=== PATIENT | female | born 1950 | race Caucasian/White ===

== ENCOUNTER → 2016-12-15 07:38 | Outpatient (CLI) | payer MEDICARE, OTHER ==
[~2016-12-15 07:38] MED LIST: AMBIEN10 MG PO; BIOTIN5 MG PO; CALCIUM 500 + D1 TAB PO; CARAFATE1 G PO; HYDROCODON-ACE1 EAC7 PO; METOPROLOL TART50 MG PO; MULTIPLE VITAMI1 TA1 PO; NEURONTIN 300300 MG PO; PEPCID20 MG PO; PROTONIX40 MG PO; ULTRAM50 MG PO
[2017-01-09 13:46] VITALS: BMI 25.5
== END ==
LOC: D.RAD 12-08 08:00
DX: K44.9 Diaphragmatic hernia without obstruction or gangrene (principal); K21.9 Gastro-esophageal reflux disease without esophagitis; R11.0 Nausea

== ENCOUNTER 2017-01-09 06:15 | Inpatient (IN) | payer MEDICARE, OTHER ==
[2017-01-09] VITALS (8 sets, daily range): BP systolic 125–156; BP diastolic 53–80; BMI 25818.0; BMI 25.5
[~2017-01-09 06:15] MED LIST changes: -BIOTIN5 MG PO; -CALCIUM 500 + D1 TAB PO; -HYDROCODON-ACE1 EAC7 PO; -MULTIPLE VITAMI1 TA1 PO
[2017-01-09 06:46] LABS: HEMATOCRIT 41.1 % (36.0-48.0); HEMOGLOBIN 12.7 g/dL (12-16); MCH 28.5 pg (26.0-34.0); MCHC 30.9 g/dL (31.0-37.0); MCV 92.4 fL (80.0-100.0); RBC 4.45 10x6/uL (4.00-5.40); RDW 13.9 % (11.5-14.5); WBC 8.6 10x3/uL (4.8-10.8)
[2017-01-09] MEDS ORDERED: BIOTIN5 MG PO (07:29)
[2017-01-09] MEDS ORDERED: MULTIPLE VITAMI1 TA1 PO (07:29)
[2017-01-09] MEDS ORDERED: CALCIUM 500 + D1 TAB PO (07:29)
--- NOTE | 2017-01-09 07:57 | NUR ---
DR. CHANG ADVISED OF PT'S BRADYCARDIA.
--- NOTE | 2017-01-09 13:45 | NUR ---
PT ARRIVED TO UNIT VIA BED ACCOMPAINIED BY HOSPITAL STAFF AND FAMILY. PT HAS A RT HAND IV RUNNING LR AT 150MLS WITH A ACCOUNT ENGINEER MORPHINE. PT IS ON O2 AT 2LPM WITH SATS OF 95%. PT HAS ABD INCISIONS COVERED WITH STERI STRIPS FROM SX. PT HAS LEFT SIDED FACIAL DROOP AND TIC THAT PT STATES SHE "HAS HAD FOR YEARS FROM TRIGEMINAL NEURALGIA." PT FAMILY AT BEDSIDE, DENIES NEEDS. WCTM.
--- NOTE | 2017-01-09 14:04 | OP ---
PATIENT NAME: POLO RUIZ MEDICAL RECORD: [id number] :52 LOCATION:D[id number] ADMISSION DATE: SURGEON: TEN BREWER MD DATE OF OPERATION: 01/09/2017 PREOPERATIVE DIAGNOSES: 1. Grade III paraesophageal hernia. 2. Tenorio esophagus with esophagitis. 3. Gastroesophageal reflux disease. POSTOPERATIVE DIAGNOSES: 1. Grade III paraesophageal hernia. 2. Tenorio esophagus with esophagitis. 3. Gastroesophageal reflux disease. PROCEDURE PERFORMED: Laparoscopic paraesophageal hernia repair with Cristiana fundoplication. ANESTHESIA: General. COMPLICATIONS: None. SPECIMENS: None. Case was clean. ESTIMATED BLOOD LOSS: 20 cc. OPERATIVE COURSE: After consent was obtained, the patient was taken to the operating room and placed in the supine position on the operating table. Next, general anesthesia was given via endotracheal intubation after a timeout was performed that confirmed the correct patient and procedure. Abdomen was prepped and draped in typical sterile fashion. Local anesthetic was injected just above the umbilicus. A stab incision was made with 11-blade scalpel. Using an 11-mm bladeless optical trocar, the abdomen was entered under direct laparoscopic vision. Adequate pneumoperitoneum was achieved. The patient was placed in the steep reverse Trendelenburg position. All remaining trocars were placed, 12-mm trocar and 5-mm trocar in the right lateral quadrant and two 5-mm trocars in the left lateral quadrant. Carmelina liver retractor in the subxiphoid position of the liver. The left lobe of liver was retracted exposing the GE junction. The upper two-thirds of the stomach were sitting within the chest cavity. At this time, the stomach was reduced. Dissection continued along the cardia. The short gastrics were taken along the cardia and dissection continued to the level of the left alonzo. The left alonzo was skeletonized. The hernia sac was circumferentially dissected at this time from the left alonzo to the midline. Next, the gastrohepatic ligament was opened using the Harmonic scalpel. Dissection continued to the level of the right alonzo. The right alonzo was skeletonized using Harmonic scalpel. The hernia sac was circumferentially dissected at this time using Harmonic scalpel. Mediastinal dissection was performed until approximately 6 cm of intraabdominal esophagus was obtained. The hernia sac was excised off the stomach. The hernia defect was closed using 0 Stratafix polypropylene suture. Next, the cardia of the stomach was passed posterior to the gastroesophageal junction. A loose floppy Cristiana fundoplication was performed with 2-0 Stratafix suture. Once complete, the abdomen was copiously irrigated and suctioned. Careful attention was paid to OPERATIVE REPORT [id number] SAMPLE,POLO Bryson andrew. At this time, the remaining portion of the abdomen was inspected with no evidence of bowel injury and no evidence of bleeding. The 12-mm and 11-mm trocars were removed. The trocar sites were closed with 0 Vicryl suture on a Mu-Emilee suture passer under direct laparoscopic vision. The Carmelina liver retractor was removed. The abdominal cavity was inspected with no evidence of bowel injury and no evidence of bleeding. At this time, all remaining instruments were removed. The abdomen was desufflated. Two Valsalva maneuvers were performed. The remaining trocars were removed. The skin was closed with 4-0 Monocryl, Mastisol and Steri-Strips. At the end of the case, all needle and instrument counts were correct. No complications occurred. The patient was extubated and transferred to the PACU in stable condition. TRANSINT:[id number] Voice Confirmation ID: [id number] DOCUMENT ID: [id number] TEN BREWER MD at 1404 CC: [id number] DICTATION DATE: 01/09/17 1213 MANAGER RELATIONSHIP: 01/09/17 1333 REG [facility] [address] [id number]
--- NOTE | 2017-01-09 23:52 | NUR ---
192) REC'D. IN BED.SITTING IN UPRIGHT POSITION.PILLOW TO ABDOMEN FOR SUPPORT.SIX LAP SITES INTACT.TO ABD. NO REDNESS OR DRAINAGE NOTED.BOWEL SOUNDS PRESENT. STATES NOT PASSING ANY FLATUS AT PRESENT TIME.ASSISTED UP TO BATHROOM TO VOID ANNE. WELL.HUMAN RESOURCES ADMIN MORPHINE INTACT FOR SELF PAIN CONTROL. RATING PAIN 6 ON ONE TEN PAIN SCALE. WILL CONTINUE TO MONITOR FOR ANY CHGES. AND FOLLOW CURRENT PLAN OF CARE.
[2017-01-10] VITALS: BP 120/54
--- NOTE | 2017-01-10 02:00 | NUR ---
PT DENIES ANY NEEDS AT THIS TIME. IV RIGHT WRIST LR @ 125, GAS BOOSTER ENGINEER IN USE FOR PAIN CONTROL. PT STATES PAIN HAS LIGHTENED UP. SCD'S ON. CALL LIGHT IN REACH, BED IN LOWEST POSITION.
[2017-01-10 04:00] VITALS: BP 114/76
[2017-01-10 06:03] LABS: BASOPHILS 0.2 % (0-2); EOSINOPHILS 0.1 % (0-7); HEMOGLOBIN 10.4 g/dL (12-16); IMMATURE GRANULOCYTES 0.2 % (0-5); LYMPHOCYTES 15.8 % (15-50); MCH 29.1 pg (26.0-34.0); MCHC 31.8 g/dL (31.0-37.0); MCV 91.3 fL (80.0-100.0); MEAN PLATELET VOLUME 10.4 fL (7.4-10.4); MONOCYTES 11.8 % (2-11); NEUTROPHILS 71.9 % (40-80); PLATELET COUNT 328 10x3/uL (130-400); RBC 3.58 10x6/uL (4.00-5.40); RDW 14.1 % (11.5-14.5); WBC 10.6 10x3/uL (4.8-10.8)
[2017-01-10 06:06] LABS: HEMATOCRIT 32.7 % (36.0-48.0)
[2017-01-10 06:37] LABS: ALBUMIN 2.8 g/dL (3.4-5.0); ALKALINE PHOSPHATASE 69 U/L (46-116); ALT (SGPT) 22 U/L (10-68); CALC OSMOLALITY 277 mosm/kg (275-300); CALCIUM 8.9 mg/dL (8.5-10.1); CARBON DIOXIDE 28.5 mmol/L (21.0-32.0); CHLORIDE - SERUM 104 mmol/L (98-107); CREATININE - SERUM 0.7 mg/dL (0.6-1.3); GLUCOSE 104 mg/dL (74-106); PROTEIN - SERUM 5.9 g/dL (6.4-8.2); SODIUM 139 mmol/L (136-145); UREA NITROGEN 12 mg/dL (7-18); eGFR NON AFRICAN AMERICAN 89 mL/min (90-120)
[2017-01-10] MEDS ORDERED: HYDROCODON-ACE1 EAC7 PO (08:27)
[2017-01-10 09:40] VITALS: BP 120/57; BP 136/67
--- NOTE | 2017-01-10 11:15 | NUR ---
D/C IV FROM RIGHT WRIST WITH CATHETER INTACT. DISCHARGE INSTRUCTIONS COMPLETED WITH PATIENT. PATIENT VERBALIZED UNDERSTANDING AND DENIES OTHER QUESTIONS.
--- NOTE | 2017-01-10 11:48 | NUR ---
PATIENT LEFT VIA WHEELCHAIR WITH FAMILY AND VOLUNTEER STAFF.
== END 2017-01-10 11:49 | disposition home or self-care (01) | DRG 328 ==
LOC: D.MS 06:15 → D.SDCHOLD 06:15 → D.OPS 06:15 → EDSTATUS 10:00 → D.PAN 10:00 → D.MS 12:06 → D.OPS 12:06 → D.MS 01-10 11:49 → D.SDCHOLD 01-10 11:49 → UNDOADMIN 01-10 11:49
PROVIDERS: Anesthesiology; ADMIT Surgery
PROC: 0BQT4ZZ Repair Diaphragm, Percutaneous Endoscopic Approach (ICD-10-PCS; 2017-01-09)
PROC: 0DV44ZZ Restriction of Esophagogastric Junction, Percutaneous Endoscopic Approach (ICD-10-PCS; principal; 2017-01-09 09:00)
DX: K44.9 Diaphragmatic hernia without obstruction or gangrene (principal); K21.0 Gastro-esophageal reflux disease with esophagitis; K22.70 Barrett's esophagus without dysplasia; Z79.891 Long term (current) use of opiate analgesic; Z79.899 Other long term (current) drug therapy; Z01.812 Encounter for preprocedural laboratory examination

== ENCOUNTER 2018-11-19 19:42 | Emergency (ER) | payer MEDICARE, OTHER ==
[~2018-11-19] VITALS: Ht 157.5 cm; Wt 68.2 kg
[~2018-11-19 19:42] MED LIST changes: +BIOTIN5 MG PO; +CALCIUM 500 + D1 TAB PO; +HYDROCODON-ACE1 EAC7 PO; +MULTIPLE VITAMI1 TA1 PO
[2018-11-19 20:06] VITALS: Ht 157.5 cm; Wt 68.2 kg
[2018-11-19] MEDS ORDERED: NORVASC5 MG PO (20:12)
[2018-11-19] MEDS ORDERED: LISINOPRIL20 MG PO (20:12)
[2018-11-19 22:00] VITALS: BP 127/62
== END 2018-11-19 22:32 | disposition home or self-care (01) ==
LOC: D.ER 19:42
DX: M25.561 Pain in right knee (principal); M25.461 Effusion, right knee; I10 Essential (primary) hypertension

== ENCOUNTER → 2018-12-17 10:23 | Outpatient (CLI) | payer MEDICARE, OTHER ==
[2018-11-19 20:06] VITALS: BMI 27.5
[~2018-12-17 10:23] MED LIST changes: +LISINOPRIL20 MG PO; +NORVASC5 MG PO; +ZOFRAN ODT4 MG/UDTAB PO
== END | disposition home or self-care (01) ==
LOC: D.RAD 10:23
PROVIDERS: ATTEND Internal Medicine Gastroenterology
DX: K58.0 Irritable bowel syndrome with diarrhea (principal); R12 Heartburn; K21.9 Gastro-esophageal reflux disease without esophagitis; R11.2 Nausea with vomiting, unspecified

== ENCOUNTER → 2018-12-28 08:10 | Outpatient (CLI) | payer MEDICARE, OTHER ==
[2018-11-19 20:06] VITALS: BMI 27.5
== END | disposition home or self-care (01) ==
LOC: D.CT 08:10
PROVIDERS: ATTEND Internal Medicine Gastroenterology
DX: K21.9 Gastro-esophageal reflux disease without esophagitis (principal); R10.13 Epigastric pain; Z98.890 Other specified postprocedural states

== ENCOUNTER 2019-01-13 09:06 | Emergency (ER) | payer MEDICARE, OTHER ==
[~2019-01-13] VITALS: Ht 157.5 cm; Wt 67.3 kg
[~2019-01-13 09:06] MED LIST changes: -ZOFRAN ODT4 MG/UDTAB PO
[2019-01-13 09:10] VITALS: Ht 157.5 cm; Wt 67.3 kg
[2019-01-13 09:33] LABS: BASOPHILS 0.4 % (0-2); HEMATOCRIT 40.7 % (36.0-48.0); HEMOGLOBIN 13.5 g/dL (12-16); IMMATURE GRANULOCYTES 0.2 % (0-5); LYMPHOCYTES 21.9 % (15-50); MCH 30.3 pg (26.0-34.0); MCHC 33.2 g/dL (31.0-37.0); MCV 91.5 fL (80.0-100.0); MONOCYTES 9.1 % (2-11); NEUTROPHILS 67.4 % (40-80); PLATELET COUNT 378 10x3/uL (130-400); RBC 4.45 10x6/uL (4.00-5.40); RDW 13.1 % (11.5-14.5); WBC 8.2 10x3/uL (4.8-10.8)
[2019-01-13 09:42] LABS: APTT 26.2 SECONDS (22.8-39.4); CALC OSMOLALITY 277 mosm/kg (275-300); CALCIUM 9.1 mg/dL (8.5-10.1); CARBON DIOXIDE 25.5 mmol/L (21.0-32.0); CHLORIDE - SERUM 102 mmol/L (98-107); CREATININE - SERUM 0.8 mg/dL (0.6-1.3); GLUCOSE 105 mg/dL (74-106); INR 1.12 (0.85-1.17); POTASSIUM - SERUM 3.4 mmol/L (3.5-5.1); PROTIME 13.9 SECONDS (11.6-15.0); SODIUM 139 mmol/L (136-145); UREA NITROGEN 13 mg/dL (7-18); eGFR NON AFRICAN AMERICAN 76 mL/min (90-120)
[2019-01-13 10:05] LABS: ALBUMIN 3.7 g/dL (3.4-5.0); ALKALINE PHOSPHATASE 103 U/L (46-116); ALT (SGPT) 22 U/L (10-68); BILIRUBIN - TOTAL 0.59 mg/dL (0.2-1.3); CKMB 2.1 U/L (0.0-3.6); CREATINE KINASE 76 UL (21-215); MAGNESIUM - SERUM 1.7 mg/dL (1.8-2.4); PROTEIN - SERUM 7.3 g/dL (6.4-8.2); TROPONIN-I < 0.017 ng/mL (0.000-0.060)
[2019-01-13] MEDS ORDERED: ZOFRAN ODT4 MG/UDTAB PO (11:56)
[2019-01-13 12:11] VITALS: BP 121/63
== END 2019-01-13 12:12 | disposition home or self-care (01) ==
LOC: D.ER 09:06
PROVIDERS: Family Medicine
DX: R07.9 Chest pain, unspecified (principal); A08.4 Viral intestinal infection, unspecified; I10 Essential (primary) hypertension; M19.90 Unspecified osteoarthritis, unspecified site; M79.7 Fibromyalgia

== ENCOUNTER 2019-06-23 12:46 | Emergency (ER) | payer MEDICARE, OTHER ==
[~2019-06-23 12:46] MED LIST changes: +ZOFRAN ODT4 MG/UDTAB PO
[2019-06-23 12:54] VITALS: Ht 157.5 cm
[2019-06-23] MEDS ORDERED: COLCRYS0.6 MG PO (13:49)
[2019-06-23] MEDS ORDERED: STERAPRED DS 1010 MG PO (13:49)
[2019-06-23 14:06] VITALS: BP 123/78
== END 2019-06-23 14:07 | disposition home or self-care (01) ==
LOC: D.ER 12:46
DX: M25.561 Pain in right knee (principal); M25.461 Effusion, right knee; I10 Essential (primary) hypertension; K21.9 Gastro-esophageal reflux disease without esophagitis

== ENCOUNTER → 2019-07-09 08:03 | Outpatient (CLI) | payer MEDICARE, OTHER ==
[~2019-07-09 08:03] MED LIST changes: +COLCRYS0.6 MG PO; +STERAPRED DS 1010 MG PO
--- NOTE | 2019-07-10 08:16 | EC ---
PATIENT:POLO RUIZ DATE OF SERVICE: 07/09/19 SEX: F MEDICAL RECORD: [id number] DATE OF : 52 LOCATION:D.[facility] AGE OF PATIENT: 69 ADMISSION DATE: 07/09/19 REFERRING PHYSICIAN: INTERPRETING PHYSICIAN: CITLALI RHODES MD ECHOCARDIOGRAM REPORT ECHO CHARGES 4 ECHO COMPLETE Date: 07/09/19 CLINICAL DIAGNOSIS: CEREBRAL INFARCTION ECHOCARDIOGRAPHIC MEASUREMENTS (adult normal given) AC root (d.<3.7cm) 2.9 cm LV Septum d (<1.2 cm> 1.4 cm Valve Excursion 1.9 cm LV Septum (systole) 1.9 cm Left Atria (s.<4.0cm> 3.8 cm LVPW d(<1.2cm) 1.3 cm RV (d.<2.3cm) 2.6 cm LVPW (sytole) 1.9 cm LV diastole(<5.6CM) 5.1 cm MV E-F(>70mm/sec) cm LV systole 3.3 cm LVOT Diameter 1.9 cm MV exc.(>10mm) cm Est.ejection fraction (50-75%) % DOPPLER: LVIT cm/sec A 66.0 cm/sec E 35.0 cm/sec LA cm/sec RVSP 29.0 mmHg LVOT 79.0 cm/sec AOP1/2T m/s Asc. Ao 152 cm/sec RVOT 61.0 cm/sec RA cm/sec PA 94.0 cm/sec AV Gradient Peak 9.2 mmHg AV Mean 4.4 mmHg AV Area 1.4 cm MV Gradient Peak 4.0 mmHg MV Mean 1.1 mmHg MV Area cm COMMENTS: Engraver Flatware: 1 MIRTA TAMEZOE Cover Mat Machine Operator: 3 Dr. Cam TAPE# PACS Pericardial Effusion N DATE OF SERVICE: Adequate 2D, color flow imaging, spectral Doppler, and M-Mode. Mild LVH. LV internal dimensions are normal. Wall motion is normal. EF greater than or equal to 55%. Aortic valve is tricuspid. There is no evidence of stenosis by Doppler interrogation. The left atrium is normal at 3.8 cm. Mitral valve shows no prolapse. Trace MR. Right-sided chamber is grossly normal. Trace TR. ECHOCARDIOGRAM REPORT [id number] POLO RUIZ TRANSINT:[id number] Voice Confirmation ID: [id number] DOCUMENT ID: [id number] CITLALI RHODES MD at 0816 CC: [id number] DICTATION DATE: 07/09/191534 FUNDRAISING ASSISTANT: 07/09/19 2226 DEP CLI 07/09/19 [address] [place] [id number] [place] [place] [id number]
== END | disposition home or self-care (01) ==
LOC: D.MRI 07-01 08:30
PROVIDERS: ATTEND Psychiatry & Neurology Neurology
DX: I63.319 Cerebral infarction due to thrombosis of unspecified middle cerebral artery (principal); M25.561 Pain in right knee

== ENCOUNTER 2019-07-15 12:37 | Emergency (ER) | payer MEDICARE, OTHER ==
[~2019-07-15] VITALS: Ht 154.9 cm; Wt 62.7 kg
[2019-07-15 13:18] VITALS: Ht 154.9 cm; Wt 62.7 kg
[2019-07-15 16:22] VITALS: BP 114/57
== END 2019-07-15 16:22 | disposition home or self-care (01) ==
LOC: D.ER 12:37
DX: M54.32 Sciatica, left side (principal); G89.29 Other chronic pain; M54.5 Low back pain; Z86.73 Personal history of transient ischemic attack (TIA), and cerebral infarction without residual deficits; I10 Essential (primary) hypertension; K21.9 Gastro-esophageal reflux disease without esophagitis

== ENCOUNTER → 2019-12-16 14:29 | Outpatient (CLI) | payer MEDICARE, OTHER ==
[2019-07-15 13:18] VITALS: BMI 25.3
== END | disposition home or self-care (01) ==
LOC: D.LAB 14:29 → D.US 14:29
PROVIDERS: ATTEND Orthopaedic Surgery
DX: R22.31 Localized swelling, mass and lump, right upper limb (principal); M17.11 Unilateral primary osteoarthritis, right knee